=== PATIENT | female | born 1950 | race African-American/Black ===

== ENCOUNTER 2022-03-23 11:14 | Outpatient (CLI) | payer MEDICARE ==
[2022-03-23 23:07] LABS: SARS-CoV-2 PCR by NAA Not Detected (NotDetected)
== END 2022-03-23 11:15 | disposition home or self-care (01) ==
LOC: CSHLAB 11:14
PROVIDERS: ATTEND Internal Medicine Gastroenterology
DX: Z20.822 Contact with and (suspected) exposure to COVID-19 (principal); R10.9 Unspecified abdominal pain
CPT/HCPCS: U0003; U0005

== ENCOUNTER 2022-03-26 09:33 | Outpatient (CLI) | payer MEDICARE | END 2022-03-26 09:34 | disposition home or self-care (01) | LOC: CSHULT 09:33 | PROVIDERS: ATTEND Internal Medicine Gastroenterology | DX: R10.9 Unspecified abdominal pain (principal); Z90.49 Acquired absence of other specified parts of digestive tract | CPT/HCPCS: 76700 ==

== ENCOUNTER 2022-03-26 10:15 | Day surgery (SDC) | payer MEDICARE ==
[2022-03-23 13:52] VITALS: BMI 27.1
[2022-03-26] MEDS ORDERED: Lidocaine 1% MPF 2 ML VIAL ONE (11:11)
[2022-03-26] MEDS ORDERED: PROPOFOL 20 ML ONE (12:42)
== END 2022-03-26 13:30 | disposition home or self-care (01) ==
LOC: CSHSDC 10:15
PROVIDERS: ATTEND Internal Medicine Gastroenterology
PROC: 0DJ08ZZ Inspection of Upper Intestinal Tract, Via Natural or Artificial Opening Endoscopic (ICD-10-PCS; principal; 2022-03-26)
DX: R10.9 Unspecified abdominal pain (principal); K21.9 Gastro-esophageal reflux disease without esophagitis; I10 Essential (primary) hypertension; F32.A Depression, unspecified; M06.9 Rheumatoid arthritis, unspecified; Z86.010 Personal history of colon polyps; Z90.49 Acquired absence of other specified parts of digestive tract
CPT/HCPCS: 76700; J2704

== ENCOUNTER 2023-01-25 11:23 | Observation (INO) | payer MEDICARE ==
[2023-01-25 11:58] LABS: #Monocytes 0.5 10x3/uL (0.0-1.1); #Neutrophils 3.7 10x3/uL (1.5-8.4); %Basophils 0.7 % (0.0-2.0); %Eosinophils 0.3 % (0.0-6.0); %Lymphocytes 24.9 % (18.0-47.0); %Monocytes 8.9 % (0.0-10.0); %Neutrophils 64.2 % (40.0-75.0); Hemoglobin 13.6 g/dL (12.0-15.5); Mean Corpuscular HGB CONC 31.5 g/dL (32.0-36.0); Mean Corpuscular Hemoglobin 26.7 pg (27.0-33.0); Mean Corpuscular Volume 84.7 fl (81.6-98.3); Mean Platelet Volume 11.2 fl (7.4-10.4); Platelet Count 247 10x3/uL (150-450); RBC Distribution Width 14.3 % (11.5-14.5); White Blood Cell (WBC) Count 5.7 10x3/uL (3.5-10.5)
[2023-01-25 12:09] LABS: ALT (SGPT) 23 U/L (8-55); AST (SGOT) 21 U/L (5-34); Albumin 4.5 g/dL (3.4-4.8); Alkaline Phosphatase 74 U/L (40-110); Anion Gap 14 mmol/L (10-20); BUN (Urea Nitrogen) 22 mg/dL (9.8-20.1); Bilirubin, Total 0.5 mg/dL (0.2-1.2); Calc. Creatinine Clearance 0 mL/min (70-130); Calcium 9.9 mg/dL (7.8-10.44); Carbon Dioxide 24 mmol/L (23-31); Chloride 107 mmol/L (98-107); Estimated GFR 55; Globulin 2.6 g/dL (2.4-3.5); Glucose 126 mg/dL (83-110); Lipase 17 U/L (8-78); Potassium 4.2 mmol/L (3.5-5.1); Protein, Total 7.1 g/dL (5.8-8.1); Sodium 141 mmol/L (136-145)
[2023-01-25] MEDS ORDERED: Acetaminophen 500 MG TAB ONE (13:06)
[2023-01-25] MEDS ORDERED: Aspirin Chewable 81 MG TAB ONE (13:06)
[2023-01-25 15:40] LABS: Troponin I Less than 0.010 ng/mL (< 0.028)
[2023-01-25] MEDS ORDERED: Nitroglycerin 0.4 MG TAB 1 EACH ONE (16:52)
[2023-01-25] MEDS ORDERED: Acetaminophen 650 MG Suppository PR PRN (17:11)
[2023-01-25] MEDS ORDERED: hydrALAZINE 20 MG/ML VIAL SLOW IVP PRN (17:15)
[2023-01-25] MEDS ORDERED: HYDROcodone/Acetaminophen 5/325 mg Tablet ONE (17:24)
[2023-01-25 18:41] LABS: Troponin I Less than 0.010 ng/mL (< 0.028)
[2023-01-25 20:41] VITALS: BMI 27.7
[2023-01-25] MEDS: HYDROcodone/Acetaminophen 5/325 mg Tablet PO PRN (21:28)
[2023-01-25] MEDS: tiZANidine HCl 4 MG TAB PO SCH (21:28)
[2023-01-25 21:29] LABS: Troponin I Less than 0.010 ng/mL (< 0.028)
[2023-01-25 22:39] LABS: SARS-CoV-2 NAA Rapid Test Not Detected (NotDetected)
[2023-01-26] MEDS: HYDROcodone/Acetaminophen 5/325 mg Tablet PO PRN (03:37)
[2023-01-26 04:00] LABS: #Monocytes 0.7 10x3/uL (0.0-1.1); #Neutrophils 3.5 10x3/uL (1.5-8.4); %Basophils 0.3 % (0.0-2.0); %Eosinophils 0.5 % (0.0-6.0); %Lymphocytes 27.9 % (18.0-47.0); %Monocytes 11.9 % (0.0-10.0); %Neutrophils 58.2 % (40.0-75.0); Hemoglobin 12.9 g/dL (12.0-15.5); Mean Corpuscular HGB CONC 30.9 g/dL (32.0-36.0); Mean Corpuscular Hemoglobin 26.6 pg (27.0-33.0); Mean Platelet Volume 11.3 fl (7.4-10.4); Platelet Count 243 10x3/uL (150-450); RBC Distribution Width 14.5 % (11.5-14.5); Red Blood Cell (RBC) Count 4.85 10x6/uL (3.90-5.03); White Blood Cell (WBC) Count 6.1 10x3/uL (3.5-10.5)
[2023-01-26 04:14] LABS: Anion Gap 12 mmol/L (10-20); BUN (Urea Nitrogen) 25 mg/dL (9.8-20.1); Calc. Creatinine Clearance 49 mL/min (70-130); Calcium 9.4 mg/dL (7.8-10.44); Carbon Dioxide 26 mmol/L (23-31); Chloride 106 mmol/L (98-107); Estimated GFR 56; Glucose 94 mg/dL (83-110); Potassium 4.3 mmol/L (3.5-5.1); Sodium 140 mmol/L (136-145)
[2023-01-26] MEDS ORDERED: Losartan 25 MG TAB PO SCH (09:00)
[2023-01-26] MEDS: tiZANidine HCl 4 MG TAB PO SCH (09:32)
[2023-01-26 12:29] VITALS: BP 115/55; TEMP 98.1
== END 2023-01-26 15:25 | disposition home or self-care (01) ==
LOC: SUATTDRO 11:23 → CSHERS 11:23 → CSHTELE 20:26
PROVIDERS: ADMIT Internal Medicine; ATTEND Internal Medicine
DX: M94.0 Chondrocostal junction syndrome [Tietze] (principal); I10 Essential (primary) hypertension; K21.9 Gastro-esophageal reflux disease without esophagitis; Z88.2 Allergy status to sulfonamides; Z88.5 Allergy status to narcotic agent; Z88.8 Allergy status to other drugs, medicaments and biological substances; Z79.82 Long term (current) use of aspirin; Z79.899 Other long term (current) drug therapy; Z20.822 Contact with and (suspected) exposure to COVID-19
CPT/HCPCS: 71045; 80048; 80053; 83690; 84484 ×2; 85025 ×2; 93005 ×2; 93306; 96372; 99285; G0378 ×3; U0002; 36415; 93010; J1650

== ENCOUNTER 2023-02-25 08:48 | Day surgery (SDC) | payer MEDICARE ==
[2023-02-23 15:49] VITALS: BMI 27.7
[2023-02-25] MEDS ORDERED: PROPOFOL 20 ML ONE ×2 (11:19→11:54)
[2023-02-25] MEDS ORDERED: PHENYLEPHRINE-NS 100 MCG/ML 10 ML SYRINGE ONE (11:38)
== END 2023-02-25 12:34 | disposition home or self-care (01) ==
LOC: CSHSDC 08:48
PROVIDERS: ATTEND Internal Medicine Gastroenterology
PROC: 0DJD8ZZ Inspection of Lower Intestinal Tract, Via Natural or Artificial Opening Endoscopic (ICD-10-PCS; principal; 2023-02-25)
PROC: 0DB68ZX Excision of Stomach, Via Natural or Artificial Opening Endoscopic, Diagnostic (ICD-10-PCS; 2023-02-25)
DX: R10.9 Unspecified abdominal pain (principal); K63.5 Polyp of colon; I10 Essential (primary) hypertension; F32.A Depression, unspecified; K21.9 Gastro-esophageal reflux disease without esophagitis; K57.30 Diverticulosis of large intestine without perforation or abscess without bleeding; K64.9 Unspecified hemorrhoids; K44.9 Diaphragmatic hernia without obstruction or gangrene; K25.9 Gastric ulcer, unspecified as acute or chronic, without hemorrhage or perforation; K29.50 Unspecified chronic gastritis without bleeding; Z88.5 Allergy status to narcotic agent; Z86.010 Personal history of colon polyps; Z88.2 Allergy status to sulfonamides; Z79.899 Other long term (current) drug therapy
CPT/HCPCS: 43239; G0105; 88305; J2704

== ENCOUNTER 2023-05-09 14:34 | Emergency (ER) | payer MEDICARE | END 2023-05-09 15:50 | disposition home or self-care (01) | LOC: CSHERS 14:34 | DX: L03.311 Cellulitis of abdominal wall (principal); I10 Essential (primary) hypertension | CPT/HCPCS: 99283 ==